=== PATIENT | male | born 1980 | race Two or more races ===

== ENCOUNTER 2019-07-22 11:39 | Emergency (ER) | payer MEDICAID, OTHER ==
[~2019-07-22] VITALS: Ht 170.2 cm; Wt 108.9 kg
[2019-07-22 13:43] VITALS: BP 132/87
[2019-07-22] MEDS ORDERED: HYDROcodone-ACET 5/325MG TAB PO ONE (14:15)
== END 2019-07-22 15:45 | disposition home or self-care (01) ==
LOC: ER 11:39
DX: S82.142A Displaced bicondylar fracture of left tibia, initial encounter for closed fracture (principal); S52.501A Unspecified fracture of the lower end of right radius, initial encounter for closed fracture; S52.601A Unspecified fracture of lower end of right ulna, initial encounter for closed fracture; S00.81XA Abrasion of other part of head, initial encounter; W06.XXXA Fall from bed, initial encounter; Y93.89 Activity, other specified; Y92.89 Other specified places as the place of occurrence of the external cause; Y99.8 Other external cause status
CPT/HCPCS: 29125; 29505; 73100; 73562